=== PATIENT | female | born 1940 | race Caucasian/White ===

== ENCOUNTER 2016-06-13 23:18 | Emergency (ER) | payer OTHER ==
[2016-06-14 01:12] LABS: HEMOGLOBIN 13.8 gm/dl (12.3-15.3); RED BLOOD COUNT 4.53 M/UL (4.00-5.10); WHITE BLOOD COUNT 13.2 K/UL (4.5-11.0)
[2016-06-14 01:32] LABS: BUN/CREATININE RATIO 18 (0-10)
== END 2016-06-14 02:50 | disposition home or self-care (01) ==
LOC: ER1 23:18
PROVIDERS: Family Medicine
DX: N30.91 Cystitis, unspecified with hematuria (principal); Z88.5 Allergy status to narcotic agent
CPT/HCPCS: 36415; 80053; 81001; 82150; 83690; 85025; 85610; 87077; 87086; 87186; 99284

== ENCOUNTER 2020-04-02 16:25 | Inpatient (IN) | payer BC, MEDICARE, OTHER ==
[~2020-04-02] VITALS: Ht 165.1 cm; Wt 68.0 kg
[2020-04-02 17:25] LABS: HEMOGLOBIN 13.6 gm/dl (12.3-15.3); RED BLOOD COUNT 4.55 M/UL (4.00-5.10); WHITE BLOOD COUNT 14.5 K/UL (4.5-11.0)
[2020-04-02 17:59] LABS: BUN/CREATININE RATIO 17 (0-10)
[2020-04-02] MEDS ORDERED: CLONAZEPAM1 MG PO (21:11)
[2020-04-02] MEDS ORDERED: GABAPENTIN300 MG PO (21:11)
[2020-04-02] MEDS ORDERED: SIMVASTATIN80 MG PO (21:12)
[2020-04-02] MEDS ORDERED: AMLODIPINE BES2.5 MG PO (21:12)
[2020-04-02] MEDS ORDERED: TENORMIN 50 MG50 MG PO (21:13)
[2020-04-02] MEDS ORDERED: CLOPIDOGREL75 MG PO (21:13)
[2020-04-02] MEDS ORDERED: ROPINIROLE HCL1 MG PO (21:14)
[2020-04-02] MEDS ORDERED: ATORVASTATIN CA40 MG PO (21:14)
[2020-04-02] MEDS ORDERED: PLETAL 100 MG100 MG PO (21:15)
[2020-04-02] MEDS ORDERED: ASPIRIN CHEWABL81 MG PO (21:17)
[2020-04-03 04:54] LABS: HEMOGLOBIN 12.2 gm/dl (12.3-15.3); WHITE BLOOD COUNT 14.7 K/UL (4.5-11.0)
[2020-04-03 04:58] LABS: RED BLOOD COUNT 3.98 M/UL (4.00-5.10)
[2020-04-03 06:10] LABS: ACINETOBACTER BAUMANNII Not Detected (Negative); CANDIDA ALBICANS Not Detected (Negative); CANDIDA KRUSEI Not Detected (Negative); CANDIDA TROPICALIS Not Detected (Negative); ENTEROCOCCUS Not Detected (Negative); HAEMOPHILUS INFLUENZAE Not Detected (Negative); KLEBSIELLA OXYTOCA Not Detected (Negative); KLEBSIELLA PNEUMONIAE Not Detected (Negative); KPC-CARBAPENEM-RESISTANCE GENE Not Detected (Negative); PROTEUS Not Detected (Negative); PSEUDOMONAS AERUGINOSA Not Detected (Negative); SERRATIA MARCESANS Not Detected (Negative); STAPHYLOCOCCUS Not Detected (Negative); STAPHYLOCOCCUS AUREUS Not Detected (Negative); STREP AGALACTIAE (GROUP B) Not Detected (Negative); STREP PYOGENES (GROUP A) Not Detected (Negative); STREPTOCOCCUS Not Detected (Negative); mecA (METHICILLIN RESIST GENE Not Detected (Negative); vanA/B (VANCOMYCIN RESIST GENE Not Detected (Negative)
[2020-04-03 07:49] LABS: ESCHERICHIA COLI DETECTED (Negative)
[2020-04-04 04:03] LABS: HEMOGLOBIN 10.9 gm/dl (12.3-15.3); RED BLOOD COUNT 3.52 M/UL (4.00-5.10); WHITE BLOOD COUNT 8.4 K/UL (4.5-11.0)
[2020-04-05 05:06] LABS: HEMOGLOBIN 10.9 gm/dl (12.3-15.3); RED BLOOD COUNT 3.57 M/UL (4.00-5.10); WHITE BLOOD COUNT 6.3 K/UL (4.5-11.0)
[2020-04-05 05:23] LABS: BUN/CREATININE RATIO 13 (0-10)
[2020-04-06 05:14] LABS: HEMOGLOBIN 10.9 gm/dl (12.3-15.3); RED BLOOD COUNT 3.6 M/UL (4.00-5.10); WHITE BLOOD COUNT 7.5 K/UL (4.5-11.0)
[2020-04-06 05:31] LABS: BUN/CREATININE RATIO 13 (0-10)
[2020-04-06] MEDS ORDERED: OMNICEF 300 MG300 MG PO (10:15)
== END 2020-04-06 16:30 | disposition home or self-care (01) | DRG 871 ==
LOC: ER1 16:25 → CDU 21:16 → MED SURG 4 21:16
PROVIDERS: Emergency Medicine; Internal Medicine Infectious Disease; ADMIT Internal Medicine
DX: A41.51 Sepsis due to Escherichia coli [E. coli] (principal); G93.41 Metabolic encephalopathy; E87.2 Acidosis; Q87.19 Other congenital malformation syndromes predominantly associated with short stature; N10 Acute pyelonephritis; Z20.822 Contact with and (suspected) exposure to COVID-19; I71.4 Abdominal aortic aneurysm, without rupture; F41.9 Anxiety disorder, unspecified; K21.9 Gastro-esophageal reflux disease without esophagitis; I25.2 Old myocardial infarction; Z90.49 Acquired absence of other specified parts of digestive tract; Z90.710 Acquired absence of both cervix and uterus; E87.6 Hypokalemia; I25.10 Atherosclerotic heart disease of native coronary artery without angina pectoris; D72.829 Elevated white blood cell count, unspecified; I73.9 Peripheral vascular disease, unspecified; I10 Essential (primary) hypertension; N30.90 Cystitis, unspecified without hematuria; Z79.01 Long term (current) use of anticoagulants; Z95.5 Presence of coronary angioplasty implant and graft; Z95.820 Peripheral vascular angioplasty status with implants and grafts; R19.7 Diarrhea, unspecified; R10.9 Unspecified abdominal pain
CPT/HCPCS: 36415; 36600; 70450; 71045; 80048; 80053; 81001; 82550; 82553; 82803; 83605; 83735; 83874; 84484; 85025; 85027; 87040; 87077; 87150; 87186; 93005; 96365; 96366; 96375; 96376; 97110-GP-CQ; 97116-GP-CQ; 97162; 97530-GP-CQ; 99285; J0692; J2405; J7030; U0002

== ENCOUNTER → 2020-05-26 | Outpatient (CLI) | payer BC, OTHER ==
[~2020-05-26] MED LIST: AMLODIPINE BES2.5 MG PO; ASPIRIN CHEWABL81 MG PO; ATORVASTATIN CA40 MG PO; CLONAZEPAM1 MG PO; CLOPIDOGREL75 MG PO; GABAPENTIN300 MG PO; OMNICEF 300 MG300 MG PO; PLETAL 100 MG100 MG PO; ROPINIROLE HCL1 MG PO; SIMVASTATIN80 MG PO; TENORMIN 50 MG50 MG PO
== END ==
LOC: MAMO 14:05
DX: Z12.31 Encounter for screening mammogram for malignant neoplasm of breast (principal); Z53.8 Procedure and treatment not carried out for other reasons
CPT/HCPCS: 81001

== ENCOUNTER → 2020-06-12 | Outpatient (CLI) | payer MEDICARE, OTHER | LOC: CT 15:00 | DX: I71.2 Thoracic aortic aneurysm, without rupture (principal) | CPT/HCPCS: 36415; 71275; 82565; Q9967 ==

== ENCOUNTER 2020-07-06 12:04 | Emergency (ER) | payer MEDICARE | END 2020-07-06 14:30 | disposition home or self-care (01) | LOC: ER1 12:04 | DX: M79.604 Pain in right leg (principal); I25.2 Old myocardial infarction; Z79.01 Long term (current) use of anticoagulants; I11.9 Hypertensive heart disease without heart failure; Z88.5 Allergy status to narcotic agent; Z88.8 Allergy status to other drugs, medicaments and biological substances | CPT/HCPCS: 93971; 99283 ==

== ENCOUNTER → 2020-09-19 | Outpatient (CLI) | payer MEDICARE | LOC: RAD 15:20 | DX: R05 Cough (principal); R91.8 Other nonspecific abnormal finding of lung field | CPT/HCPCS: 71046 ==

== ENCOUNTER 2021-01-01 11:30 | Emergency (ER) | payer MEDICARE ==
[2021-01-01 13:06] LABS: HEMOGLOBIN 12.6 gm/dl (12.3-15.3); RED BLOOD COUNT 4.33 M/UL (4.00-5.10); WHITE BLOOD COUNT 8.9 K/UL (4.5-11.0)
[2021-01-01 13:24] LABS: BUN/CREATININE RATIO 14 (0-10)
[2021-01-01] MEDS ORDERED: FLONASE 0.05% N16 GM (15:26)
[2021-01-01] MEDS ORDERED: MOTION SICKNESS25 M3 PO (15:26)
[2021-01-01] MEDS ORDERED: AUGMENTIN250 MG/5 M PO (15:26)
== END 2021-01-01 15:42 | disposition home or self-care (01) ==
LOC: ER1 11:30
PROVIDERS: Student in an Organized Health Care Education/Training Program
DX: H81.12 Benign paroxysmal vertigo, left ear (principal); H66.92 Otitis media, unspecified, left ear; I10 Essential (primary) hypertension; Z85.118 Personal history of other malignant neoplasm of bronchus and lung; Z87.891 Personal history of nicotine dependence; Z20.822 Contact with and (suspected) exposure to COVID-19
CPT/HCPCS: 70450; 71045; 80053; 82550; 82553; 84484; 85025; 93005; 99284; U0002

== ENCOUNTER 2021-02-12 19:24 | Emergency (ER) | payer MEDICARE ==
[~2021-02-12 19:24] MED LIST changes: +AUGMENTIN250 MG/5 M PO; +FLONASE 0.05% N16 GM; +MOTION SICKNESS25 M3 PO
[2021-02-12 20:02] LABS: HEMOGLOBIN 12.9 gm/dl (12.3-15.3); RED BLOOD COUNT 4.55 M/UL (4.00-5.10); WHITE BLOOD COUNT 8.9 K/UL (4.5-11.0)
[2021-02-12 20:27] LABS: BUN/CREATININE RATIO 15 (0-10)
== END 2021-02-13 00:15 | disposition short-term general hospital (02) ==
LOC: ER1 19:24
PROVIDERS: Student in an Organized Health Care Education/Training Program
DX: I71.02 Dissection of abdominal aorta (principal); I10 Essential (primary) hypertension; Z88.8 Allergy status to other drugs, medicaments and biological substances; Z20.822 Contact with and (suspected) exposure to COVID-19
CPT/HCPCS: 71275; 75635; 80053; 82550; 82553; 83874; 84484; 85025; 86850; 86900; 86901; 93005; 96374; 96375; 96376; 99285; J2060; J2270; J2405; Q9967; U0002